=== PATIENT | female | born 1940 | race Caucasian/White ===

== ENCOUNTER 2020-08-19 14:03 | Outpatient (CLI) | payer MEDICARE, OTHER ==
--- NOTE | 2020-08-19 14:43 | XRAY Report ---
PROCEDURE: Knee 3 View RT INDICATIONS: CONTUSION OF RIGHT KNEE TECHNIQUE: 3 views of the right knee(s) were acquired. COMPARISON: None. FINDINGS: Bones: Status post right knee arthroplasty. No fractures or dislocations. No suspicious bony lesion s. Soft tissues: No joint effusion. No suspicious soft tissue calcifications. IMPRESSION: No fracture. No acute osseous lesion. If there persistent symptoms or continued clinical concern for pathology, then repeat plain film radiographs (7-10 days) or advanced imaging (CT, MR, bone scan) jesus uld be considered for further evaluation. Reviewed by: Laurie Davis MD, PhD on 08/19/2020 2:42 PM PDT Approved by: Laurie Davis MD, PhD on 08/19/2020 2:42 PM PDT Station ID: [id number]
== END 2020-08-19 23:59 | disposition home or self-care (01) ==
LOC: DI.S 14:03
PROVIDERS: ATTEND Physician Assistant Medical
DX: S80.01XA Contusion of right knee, initial encounter (principal)

== ENCOUNTER 2021-01-28 14:51 | Outpatient (CLI) | payer MEDICARE, OTHER ==
[2021-01-28 19:50] LABS: BASOPHILS # (AUTO) 0.3 10^3/uL (0.0-0.1); BASOPHILS % (AUTO) 2.4 %; EOSINOPHILS # (AUTO) 0.6 10^3/uL (0.0-0.7); EOSINOPHILS % (AUTO) 4.9 %; HCT - HEMATOCRIT 36.2 % (37.0-47.0); HGB - HEMOGLOBIN 11.3 g/dL (12.0-16.0); LYMPHOCYTES # (AUTO) 1.9 10^3/uL (1.5-3.5); MEAN CORPUSCULAR HEMOGLOBIN 30.5 pg (27.0-31.0); MEAN CORPUSCULAR HGB CONC 31.2 g/dL (32.0-36.0); MEAN CORPUSCULAR VOLUME 97.8 fL (81.0-99.0); MEAN PLATELET VOLUME 10.1 fL (7.9-10.8); MONOCYTES % (AUTO) 7.5 %; NEUTROPHILS # (AUTO) 8.8 10^3/uL (1.5-6.6); NEUTROPHILS % (AUTO) 69.4 %; RED CELL DISTRIBUTION WIDTH 15.9 % (12.0-15.0); WHITE BLOOD COUNT 12.7 x10^3/uL (4.8-10.8)
[2021-01-28 20:58] LABS: PLT - PLATELET COUNT 1938 10^3/uL (130-450)
== END 2021-01-28 14:52 | disposition home or self-care (01) ==
LOC: LAB.S 14:51
PROVIDERS: ATTEND Internal Medicine
DX: D47.3 Essential (hemorrhagic) thrombocythemia (principal); D72.829 Elevated white blood cell count, unspecified
CPT/HCPCS: 36415; 85025

== ENCOUNTER 2021-02-04 08:00 | Outpatient (CLI) | payer MEDICARE, OTHER ==
--- NOTE | 2021-02-04 23:00 | XRAY Report ---
PROCEDURE: Pelvis 1 View INDICATIONS: CONTUSION OF LOWER BACK AND PELVIS TECHNIQUE: Single view of the pelvis was obtained COMPARISON: None. FINDINGS: Bilateral acetabular joint space narrowing noted to. Normal bone mineralization without fracture or m alalignment. Degenerative changes noted lower lumbar spine. Pelvic ring intact. Atherosclerotic vascular calcification noted. Anastomotic suture ring overlying the rectum IMPRESSION: 1. Mild degenerative changes without fracture or dislocation Reviewed by: Pepe Negron MD on 02/04/2021 9:59 PM AKJEANNETTE Approved by: Pepe Negron MD on 02/04/2021 9:59 PM AKDT Station ID: [id number]
== END 2021-02-04 23:59 | disposition home or self-care (01) ==
LOC: DI.S 08:00
PROVIDERS: ATTEND Emergency Medicine
DX: S30.0XXA Contusion of lower back and pelvis, initial encounter (principal); M47.816 Spondylosis without myelopathy or radiculopathy, lumbar region